=== PATIENT | male | born 1970 | race Caucasian/White ===

== ENCOUNTER 2017-03-22 15:45 | Emergency (ER) | payer OTHER ==
[2017-03-22 16:08] VITALS: BP 153/99
[2017-03-22] MEDS ORDERED: Bacitracin Oint 1 GM U/D Packet TOP ONE (16:39)
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
== END 2017-03-22 17:11 | disposition home or self-care (01) ==
LOC: JP.ED 15:45
DX: S16.1XXA Strain of muscle, fascia and tendon at neck level, initial encounter (principal); S29.012A Strain of muscle and tendon of back wall of thorax, initial encounter; S90.512A Abrasion, left ankle, initial encounter; Z98.890 Other specified postprocedural states; Z79.82 Long term (current) use of aspirin; Z79.899 Other long term (current) drug therapy; V89.2XXA Person injured in unspecified motor-vehicle accident, traffic, initial encounter
CPT/HCPCS: 99283

== ENCOUNTER 2021-12-17 07:47 | Day surgery (SDC) | payer OTHER ==
[~2021-12-17 07:47] MED LIST: Midazolam 1 MG/ML 2 ML SDV ONE; Propofol 200 MG/20 ML SDV ONE; fentaNYL 100 MCG/2 ML SDV ONE
[2021-12-17] MEDS: Sodium Chloride 0.9% 1,000 ML IV SCH (08:24)
[2021-12-17] MEDS: Dicyclomine 10 MG Cap PO ONE (10:54)
[2021-12-17 12:23] VITALS: BP 140/94; PULSE 61
== END 2021-12-17 13:51 | disposition home or self-care (01) ==
LOC: JP.SDS 07:47
PROVIDERS: ATTEND Surgery
DX: Z12.11 Encounter for screening for malignant neoplasm of colon (principal); D12.4 Benign neoplasm of descending colon; D12.5 Benign neoplasm of sigmoid colon; K57.30 Diverticulosis of large intestine without perforation or abscess without bleeding
CPT/HCPCS: A9270-GY; J2250; J2704; J3010; J7030

== ENCOUNTER → 2024-05-22 | Day surgery (SDC) | payer OTHER ==
[2024-05-22] MEDS: Sodium Chloride 0.9% 1,000 ML IV SCH (09:05)
[2024-05-22 11:29] VITALS: BP 130/93; PULSE 62
== END ==
LOC: JP.SDS 08:21
PROVIDERS: ATTEND Surgery
DX: Z12.11 Encounter for screening for malignant neoplasm of colon (principal); K63.5 Polyp of colon; K57.30 Diverticulosis of large intestine without perforation or abscess without bleeding; E66.01 Morbid (severe) obesity due to excess calories; Z80.0 Family history of malignant neoplasm of digestive organs; Z86.010 Personal history of colon polyps
CPT/HCPCS: 00811-QZ; J2250; J2704; J3010; J7030